=== PATIENT | male | born 1960 | race Caucasian/White ===

== ENCOUNTER → 2016-11-19 | Outpatient (CLI) | payer OTHER ==
[~2016-11-19] MED LIST: REGADENOSON 0.4 MG/5 ML SYRINGE ONE
== END | disposition home or self-care (01) ==
LOC: CFH 12:04
PROVIDERS: ATTEND Family Medicine
DX: R07.2 Precordial pain (principal)
CPT/HCPCS: 78452; 93017; A9502; J2785

== ENCOUNTER 2018-04-12 07:37 | Day surgery (SDC) | payer OTHER ==
[~2018-04-12] VITALS: Ht 193 cm; Wt 116.4 kg
[2018-04-12 08:22] VITALS: BP 130/76
[2018-04-12] MEDS ORDERED: ASPIRIN PO (08:56)
[2018-04-12] MEDS ORDERED: ATOR40TA78 PO (08:56)
[2018-04-12] MEDS ORDERED: ALPR0.25 PO (08:56)
[2018-04-12] MEDS ORDERED: MONT10TA6 PO (08:56)
[2018-04-12] MEDS ORDERED: OMEP20TA62 PO (08:56)
[2018-04-12] MEDS ORDERED: LACTATED RINGERS 1,000 ML IV SCH (09:00)
[2018-04-12 09:23] LABS: MICROSCOPIC NOT IND
[2018-04-12 09:27] LABS: CULTURE INDICATED? NO
[2018-04-12] MEDS ORDERED: DEXAMETHASONE 4 MG/ML, 1ML ONE (09:43)
[2018-04-12] MEDS ORDERED: CEFAZOLIN 1,000 MG ONE (09:43)
[2018-04-12] MEDS ORDERED: ONDANSETRON 2MG/ML, 2ML ONE (09:43)
[2018-04-12] MEDS ORDERED: METOCLOPRAMIDE 5 MG/ML, 2ML ONE (09:43)
[2018-04-12] MEDS ORDERED: FENTANYL PF 100 MCG/2ML ONE (09:43)
[2018-04-12] MEDS ORDERED: MIDAZOLAM 1 MG/ML, 2ML ONE ×2 (09:44)
[2018-04-12] MEDS ORDERED: PROPOFOL 10 MG/ML, 20ML ONE (09:46)
[2018-04-12] MEDS ORDERED: FENTANYL PF 100 MCG/2ML IV PRN (10:30)
[2018-04-12] MEDS ORDERED: LABETALOL 5MG/ML, 20ML IV PRN (10:30)
[2018-04-12] MEDS ORDERED: HYDROmorphone 1 MG/ML, 1ML IV PRN (10:30)
[2018-04-12] MEDS ORDERED: MIDAZOLAM 1 MG/ML, 2ML IV PRN (10:30)
[2018-04-12] MEDS ORDERED: OXYcodone 5 MG/5 ML ORAL.SOL UDC PO PRN (10:30)
[2018-04-12] MEDS ORDERED: ONDANSETRON 2MG/ML, 2ML IVPush PRN (10:30)
[2018-04-12] MEDS ORDERED: MEPERIDINE/PF 25MG/0.5ML IVPush PRN (10:30)
== END 2018-04-12 12:25 | disposition home or self-care (01) ==
LOC: OUT 07:37
PROVIDERS: ATTEND Urology
DX: N30.20 Other chronic cystitis without hematuria (principal); N32.89 Other specified disorders of bladder; E78.00 Pure hypercholesterolemia, unspecified; Z72.89 Other problems related to lifestyle; E11.9 Type 2 diabetes mellitus without complications; Z90.49 Acquired absence of other specified parts of digestive tract; Z87.891 Personal history of nicotine dependence; Z98.890 Other specified postprocedural states; Z79.82 Long term (current) use of aspirin
CPT/HCPCS: 81003; 88305; J0690; J1100; J2250; J2405; J2704; J3010; J2765; J7120